=== PATIENT | male | born 2000 | race Caucasian/White ===

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

== ENCOUNTER 2023-01-02 23:45 | Emergency (ER) | payer OTHER ==
[~2023-01-02] VITALS: Ht 175.2 cm; Wt 93.0 kg
== END 2023-01-03 01:25 | disposition home or self-care (01) ==
LOC: ED 23:45
DX: S67.22XA Crushing injury of left hand, initial encounter (principal); S60.512A Abrasion of left hand, initial encounter; W23.0XXA Caught, crushed, jammed, or pinched between moving objects, initial encounter; Y93.89 Activity, other specified; Y92.89 Other specified places as the place of occurrence of the external cause; Y99.0 Civilian activity done for income or pay

== ENCOUNTER 2024-04-20 10:30 | Emergency (ER) | payer OTHER ==
[2024-04-20] MEDS ORDERED: VIBRAMYCIN100 MG PO (10:49)
[2024-04-20] MEDS ORDERED: HYDROCORTISONE 30 GM TUBE T ONE (10:50)
[2024-04-20] MEDS ORDERED: Doxycycline Hyclate 100 MG CAP PO ONE (10:50)
== END 2024-04-20 11:08 | disposition home or self-care (01) ==
LOC: ED 10:30
DX: A69.20 Lyme disease, unspecified (principal)